=== PATIENT | female | born 1990 | race Caucasian/White ===

== ENCOUNTER 2016-12-09 07:13 | Day surgery (SDC) | payer OTHER ==
[~2016-12-09] VITALS: Ht 162.6 cm; Wt 54.5 kg
[2016-12-09 07:41] VITALS: BP 97/60; PULSE 66; TEMP 97.7
[2016-12-09 08:10] VITALS: BP 102/73; PULSE 78; TEMP 98.1
[2016-12-09 08:25] VITALS: BP 102/70; PULSE 79
[2016-12-09 08:38] VITALS: BP 88/44; PULSE 52
== END 2016-12-09 08:50 | disposition home or self-care (01) ==
LOC: SDCO 07:13
DX: K21.0 Gastro-esophageal reflux disease with esophagitis (principal); K30 Functional dyspepsia
CPT/HCPCS: J2250; J3010; J7030